=== PATIENT | male | born 1975 | race Caucasian/White ===

== ENCOUNTER 2017-08-14 10:37 | Inpatient (IN) | payer MEDICAID ==
[2017-08-14] MEDS: SODIUM CHLORIDE 0.9% 1L BAG IV* (11:04)
[2017-08-14] MEDS: CEFEPIME 2GM/50 ML (PMX) 50 ML IVPB ×2 (11:07→22:45)
[2017-08-14 11:09] LABS: WHITE BLOOD COUNT 12.2 10^3/ul (4.8-10.8)
[2017-08-14 11:09] LABS: ABNORMAL IP MESSAGE 1; ADD MAN DIFF? NO; BASOPHIL # 0.1 10^3/ul (0.0-0.1); BASOPHILS % 0.4 % (0.0-2.0); HEMATOCRIT 30.9 % (42.0-52.0); HEMOGLOBIN 10.8 g/dl (14.0-18.0); LYMPHOCYTES # 1.6 10^3/ul (0.8-2.9); LYMPHOCYTES % 12.8 % (15.0-51.0); MEAN CORPUSCULAR VOLUME 91.4 fl (82.0-101.0); MEAN PLATELET VOLUME 10.6 fl (7.4-10.4); MONOCYTE # 1.3 10^3/ul (0.3-0.9); MONOCYTES % 10.5 % (0.0-11.0); NEUTROPHILS % 73.9 % (39.0-77.0); PLATELET COUNT 72 10^3/UL (140-415); POSITIVE DIFF @See below; RED BLOOD COUNT 3.38 10^6/ul (4.70-6.10); RED CELL DISTRIBUTION WIDTH 14.7 % (11.5-14.5)
[2017-08-14 11:17] LABS: ADD UMIC NO; UR ASCORBIC ACID NEGATIVE (NEGATIVE); UR BILIRUBIN (Dip) NEGATIVE (NEGATIVE); UR BLOOD (Dip) NEGATIVE (NEGATIVE); UR CLARITY CLEAR (CLEAR); UR COLOR YELLOW (YELLOW); UR GLUCOSE (Dip) 3+ mg/dL (NEGATIVE); UR KETONES (Dip) TRACE mg/dL (NEGATIVE); UR LEUKOCYTE ESTERASE (Dip) NEGATIVE Leu/ul (NEGATIVE); UR NITRITE (Dip) NEGATIVE (NEGATIVE); UR SPECIFIC GRAVITY (Dip) 1.017 (1.003-1.030); UR TOTAL PROTEIN (Dip) NEGATIVE (NEGATIVE); UR UROBILINOGEN (Dip) 2+ mg/dL (NEGATIVE)
[2017-08-14 11:35] LABS: PROTIME 15.4 Sec (11.9-14.9); PT RATIO 1.2
[2017-08-14 11:36] LABS: PARTIAL THROMBOPLASTIN TIME 32.5 Sec (25.0-35.0)
[2017-08-14 11:37] LABS: ALANINE AMINOTRANSFERASE 41 IU/L (13-69); ALBUMIN 3.7 g/dl (3.3-4.9); ALBUMIN/GLOBULIN RATIO 0.88; ALKALINE PHOSPHATASE 190 IU/L (42-121); ANION GAP 26 (8-16); ASPARTATE AMINO TRANSFERASE 80 IU/L (15-46); BILIRUBIN,INDIRECT 0.3 mg/dl (0-1.1); BILIRUBIN,TOTAL 0.3 mg/dl (0.2-1.3); BLOOD UREA NITROGEN 10 mg/dl (7-20); CALCIUM 8.7 mg/dl (8.4-10.2); CARBON DIOXIDE 23 mmol/L (21-31); CHLORIDE 102 mmol/L (97-110); CREATINE KINASE 217 IU/L (23-200); CREATININE 0.74 mg/dl (0.61-1.24); GLUCOSE 314 mg/dl (70-220); LIPASE 50 U/L (23-300); POTASSIUM 3.7 mmol/L (3.5-5.1); SODIUM 147 mmol/L (135-144); TOTAL PROTEIN 7.9 g/dl (6.1-8.1)
[2017-08-14 11:42] LABS: AMPHETAMINE/METHAMPHETAMINE Negative (NEGATIVE); BARBITURATES Negative (NEGATIVE); BENZODIAZEPINES Negative (NEGATIVE); CANNABINOIDS Negative (NEGATIVE); COCAINE Negative (NEGATIVE); OPIATES Negative (NEGATIVE)
[2017-08-14 11:42] LABS: LACTIC ACID 4.1 mmol/L (0.5-2.0)
[2017-08-14 11:50] LABS: TROPONIN-I < 0.012 ng/ml (0.00-0.12)
[2017-08-14] MEDS: LIDOCAINE 1% (MPF) 5 ML VIAL SC (12:00)
[2017-08-14] MEDS: ACETAMINOPHEN 650 MG SUPP PR (12:36)
[2017-08-14] MEDS: VANCOMYCIN 1 GM (PMX) 250 ML IVPB (12:38)
[2017-08-14 13:37] LABS: LACTIC ACID 3.1 mmol/L (0.5-2.0)
[2017-08-14] MEDS: SOD CHLORIDE 0.9% 1,000 ML IV (13:47)
[2017-08-14] MEDS: MULTIVITAMINS 10 ML, THIAMINE 100 MG, FOLIC ACID 1 MG, MAGNESIUM SULFATE 2 GM in SOD CH... IV (13:48)
[2017-08-14 15:12] LABS: LACTIC ACID 1.9 mmol/L (0.5-2.0)
[2017-08-14] MEDS ORDERED: DOCUSATE SODIUM 100 MG CAP PO (15:30)
[2017-08-14] MEDS ORDERED: ACETAMINOPHEN 650 MG SUPP PR (15:30)
[2017-08-14] MEDS ORDERED: MAGNESIUM HYDROXIDE 30ML CUP PO (15:30)
[2017-08-14] MEDS ORDERED: ONDANSETRON 4 MG INJ IV (15:30)
[2017-08-14] MEDS ORDERED: VANCOMYCIN IV PER PHARMACY XX (15:30)
[2017-08-14] MEDS ORDERED: NACL 0.9% 3 ML SYG IV (15:30)
[2017-08-14] MEDS ORDERED: BISACODYL 10 MG SUPP PR (15:30)
[2017-08-14] MEDS ORDERED: HYDROCODONE/APAP (5/325) TAB PO (15:30)
[2017-08-14] MEDS: LORAZEPAM 2 MG INJ IV ×2 (16:05→17:22)
[2017-08-14] MEDS: CHLORDIAZEPOXIDE 25 MG CAP PO ×2 (16:05→22:46)
[2017-08-14] MEDS: SOD CHLORIDE 0.9% 2,540 ML IV (16:48)
[2017-08-14] MEDS ORDERED: ACETAMINOPHEN 325 MG TAB (17:00)
[2017-08-14] MEDS ORDERED: IBUPROFEN 200 MG TAB (17:19)
[2017-08-14] MEDS: IBUPROFEN 200 MG TAB PO (17:22)
[2017-08-14] MEDS: ACETAMINOPHEN 325 MG TAB PO (17:22)
[2017-08-14] MEDS ORDERED: DEXTROSE 50% 50 ML SYRINGE IV ×2 (17:30)
[2017-08-14] MEDS ORDERED: GLUCOSE GEL 15 GRAM TUBE PO ×2 (17:30)
[2017-08-14] MEDS ORDERED: GLUCAGON 1 MG INJ IM (17:30)
[2017-08-14] MEDS ORDERED: GLUCOSE GEL 15 GRAM TUBE BUCCAL (17:30)
[2017-08-14] MEDS: INSULIN ASPART [NOVOLOG] 3 ML PEN SC ×4 (18:00→20:10)
[2017-08-14] MEDS: LACTATED RINGER'S 1,000 ML IV (19:00)
[2017-08-14] MEDS: PANTOPRAZOLE 40 MG INJ IV (19:00)
[2017-08-14 19:19] LABS: LACTIC ACID 1.9 mmol/L (0.5-2.0)
[2017-08-14] MEDS: INSULIN GLARGINE [LANtus] 3 ML PEN SC (20:09)
[2017-08-14] MEDS: VANCOMYCIN 1.25 GM in SOD CHLORIDE 0.9% 250 ML IVPB (20:54)
[2017-08-15 01:00] LABS: LACTIC ACID 1.2 mmol/L (0.5-2.0)
[2017-08-15] MEDS: LACTATED RINGER'S 1,000 ML IV ×4 (01:42→22:28)
[2017-08-15] MEDS: INSULIN ASPART [NOVOLOG] 3 ML PEN SC ×8 (01:42→21:00)
[2017-08-15] MEDS: LORAZEPAM 2 MG INJ IV ×4 (04:13→16:34)
[2017-08-15] MEDS: ACCU-CHEK XX (05:30)
[2017-08-15 06:00] LABS: ADD MAN DIFF? NO
[2017-08-15 06:17] LABS: HEMOGLOBIN A1C 8.5 % (0-5.9)
[2017-08-15 06:32] LABS: ALANINE AMINOTRANSFERASE 41 IU/L (13-69); ALBUMIN 2.7 g/dl (3.3-4.9); ALBUMIN/GLOBULIN RATIO 0.81; ALKALINE PHOSPHATASE 143 IU/L (42-121); ANION GAP 12 (8-16); ASPARTATE AMINO TRANSFERASE 79 IU/L (15-46); BILIRUBIN,INDIRECT 0.2 mg/dl (0-1.1); BILIRUBIN,TOTAL 0.2 mg/dl (0.2-1.3); BLOOD UREA NITROGEN 9 mg/dl (7-20); CALCIUM 7.6 mg/dl (8.4-10.2); CARBON DIOXIDE 28 mmol/L (21-31); CHLORIDE 106 mmol/L (97-110); CHOL/HDL RATIO 3.3 RATIO; CHOLESTEROL 142 mg/dl (100-200); CREATININE 0.39 mg/dl (0.61-1.24); GLUCOSE 82 mg/dl (70-220); HDL CHOLESTEROL 42 mg/dl (28-71); LDL CHOLESTEROL,CALCULATED 70 mg/dl; MAGNESIUM 1.5 mg/dl (1.7-2.5); PHOSPHORUS 2.2 mg/dl (2.5-4.9); POTASSIUM 3.4 mmol/L (3.5-5.1); SODIUM 143 mmol/L (135-144); TRIGLYCERIDES 148 mg/dl (0-149)
[2017-08-15 06:40] LABS: LACTIC ACID 2.2 mmol/L (0.5-2.0)
[2017-08-15 06:48] LABS: FREE THYROXINE INDEX (Calc) 2.01 ug/ml (0.65-3.89); T4 (THYROXINE) 4.1 ug/dl (5.5-11.0)
[2017-08-15 07:20] LABS: WHITE BLOOD COUNT 10.8 10^3/ul (4.8-10.8)
[2017-08-15 07:20] LABS: ABNORMAL IP MESSAGE 1; BASOPHIL # 0.1 10^3/ul (0.0-0.1); BASOPHILS % 0.6 % (0.0-2.0); HEMATOCRIT 30.4 % (42.0-52.0); HEMOGLOBIN 10.6 g/dl (14.0-18.0); LYMPHOCYTES # 1.1 10^3/ul (0.8-2.9); LYMPHOCYTES % 9.7 % (15.0-51.0); MEAN CORPUSCULAR HEMOGLOBIN 31.8 pg (29.0-33.0); MEAN CORPUSCULAR HGB CONC 34.9 g/dl (32.0-37.0); MEAN CORPUSCULAR VOLUME 91.3 fl (82.0-101.0); MEAN PLATELET VOLUME 10.2 fl (7.4-10.4); MONOCYTE # 0.8 10^3/ul (0.3-0.9); MONOCYTES % 7.3 % (0.0-11.0); NEUTROPHIL # 8.6 10^3/ul (1.6-7.5); NEUTROPHILS % 80.3 % (39.0-77.0); PLATELET COUNT 61 10^3/UL (140-415); POSITIVE DIFF @See below; RED BLOOD COUNT 3.33 10^6/ul (4.70-6.10); RED CELL DISTRIBUTION WIDTH 14.4 % (11.5-14.5)
[2017-08-15] MEDS: PANTOPRAZOLE 40 MG INJ IV (08:22)
[2017-08-15] MEDS: CEFEPIME 2GM/50 ML (PMX) 50 ML IVPB ×3 (08:22→22:51)
[2017-08-15 08:50] LABS: ANISOCYTOSIS 2+ (0-0); BAND NEUTROPHILS #M 2.2 10^3/ul (0.0-0.6); BAND NEUTROPHILS % (M) 21 % (0-4); BASOPHIL #M 0.1 10^3/ul (0.0-0.0); BASOPHILS % (M) 1 % (0-2); ERYTHROBLAST% (NRBC) (M) 1 % (0-0); LYMPHOCYTES #M 1.7 10^3/ul (0.8-2.9); LYMPHOCYTES % (M) 16 % (15-51); MICROCYTOSIS 1+ (0-0); MONOCYTE #M 0.4 10^3/ul (0.3-0.9); MONOCYTES % (M) 4 % (0-11); MYELOCYTES #M 0.1 10^3/ul (0.0-0.0); MYELOCYTES % (M) 1 % (0-0); PLATELET ESTIMATE SIG DECREASED; POLYCHROMASIA 1+ (0-0); SEG NEUT #M 6.4 10^3/ul (1.6-7.5); SEGMENTED NEUTROPHILS (M) % 57 % (39-77); SMUDGE%M 12 % (0-0)
[2017-08-15] MEDS: CHLORDIAZEPOXIDE 25 MG CAP PO ×3 (09:34→21:23)
[2017-08-15] MEDS: VANCOMYCIN 1.25 GM in SOD CHLORIDE 0.9% 250 ML IVPB ×2 (09:48→21:22)
[2017-08-15] MEDS: MAGNESIUM SULFATE 2 GM/50 ML 50 ML IVPB (12:00)
[2017-08-15 13:02] LABS: LACTIC ACID 1.5 mmol/L (0.5-2.0)
[2017-08-15] MEDS: POTASSIUM PHOSPHATE 40 MEQ in SOD CHLORIDE 0.9% 250 ML IVPB (13:16)
[2017-08-15] MEDS: LEVOFLOXACIN 500MG/D5W (PMX) 100 ML IVPB (13:43)
[2017-08-15] MEDS: ACETAMINOPHEN 325 MG TAB PO (15:23)
[2017-08-15 18:13] LABS: LACTIC ACID 1.6 mmol/L (0.5-2.0)
[2017-08-15] MEDS: INSULIN GLARGINE [LANtus] 3 ML PEN SC (22:43)
[2017-08-16] MEDS: PERMETHRIN 5% 60 GM CR TOP (01:14)
[2017-08-16] MEDS: ACETAMINOPHEN 325 MG TAB PO ×3 (01:41→23:08)
[2017-08-16] MEDS: ACCU-CHEK XX (02:00)
[2017-08-16] MEDS ORDERED: PENDING SANTYL ORDER FOR WOUND CARE XX (03:30)
[2017-08-16] MEDS: PANTOPRAZOLE 40 MG INJ IV (05:52)
[2017-08-16] MEDS: CEFEPIME 2GM/50 ML (PMX) 50 ML IVPB ×2 (06:18→13:31)
[2017-08-16 07:21] LABS: ADD MAN DIFF? NO
[2017-08-16 07:22] LABS: WHITE BLOOD COUNT 9.1 10^3/ul (4.8-10.8)
[2017-08-16 07:22] LABS: ABNORMAL IP MESSAGE 1; BASOPHIL # 0.1 10^3/ul (0.0-0.1); BASOPHILS % 0.6 % (0.0-2.0); EOSINOPHILS % 0.3 % (0.0-7.0); HEMATOCRIT 29.5 % (42.0-52.0); HEMOGLOBIN 10.2 g/dl (14.0-18.0); LYMPHOCYTES # 1.6 10^3/ul (0.8-2.9); LYMPHOCYTES % 17.7 % (15.0-51.0); MEAN CORPUSCULAR HEMOGLOBIN 31.3 pg (29.0-33.0); MEAN CORPUSCULAR HGB CONC 34.6 g/dl (32.0-37.0); MEAN CORPUSCULAR VOLUME 90.5 fl (82.0-101.0); MEAN PLATELET VOLUME 10.8 fl (7.4-10.4); MONOCYTES % 11.3 % (0.0-11.0); NEUTROPHIL # 6.1 10^3/ul (1.6-7.5); NEUTROPHILS % 67.7 % (39.0-77.0); POSITIVE DIFF @See below; RED BLOOD COUNT 3.26 10^6/ul (4.70-6.10); RED CELL DISTRIBUTION WIDTH 14.3 % (11.5-14.5)
[2017-08-16] MEDS: LACTATED RINGER'S 1,000 ML IV ×3 (07:30→23:30)
[2017-08-16 07:31] LABS: PLATELET COUNT 75 10^3/UL (140-415)
[2017-08-16 07:42] LABS: CREATINE KINASE 123 IU/L (23-200)
[2017-08-16 07:44] LABS: ANION GAP 12 (8-16); BLOOD UREA NITROGEN 7 mg/dl (7-20); CALCIUM 8.2 mg/dl (8.4-10.2); CARBON DIOXIDE 29 mmol/L (21-31); CHLORIDE 105 mmol/L (97-110); CREATININE 0.47 mg/dl (0.61-1.24); GLUCOSE 74 mg/dl (70-220); SODIUM 143 mmol/L (135-144)
[2017-08-16] MEDS: INSULIN ASPART [NOVOLOG] 3 ML PEN SC ×7 (07:55→20:57)
[2017-08-16 08:20] LABS: VANCOMYCIN,TROUGH 5.9 ug/ml (10.0-20.0)
[2017-08-16] MEDS ORDERED: INFLUENZA VIRUS VACCINE 0.5 ML SYG IM* (09:00)
[2017-08-16] MEDS: CHLORDIAZEPOXIDE 25 MG CAP PO ×3 (09:13→20:43)
[2017-08-16 10:29] LABS: MAGNESIUM 1.6 mg/dl (1.7-2.5)
[2017-08-16] MEDS: VANCOMYCIN 1.25 GM in SOD CHLORIDE 0.9% 250 ML IVPB (10:32)
[2017-08-16] MEDS: POTASSIUM CHLORIDE (SR) 20 MEQ TAB PO (10:34)
[2017-08-16] MEDS: CEFTRIAXONE 2 GM/50 ML (PMX) 50 ML IVPB (16:01)
[2017-08-16] MEDS: VANCOMYCIN 1 GM 250 ML IVPB (16:02)
[2017-08-16] MEDS: LORAZEPAM 2 MG INJ IV ×2 (18:56→20:36)
[2017-08-16] MEDS: INSULIN GLARGINE [LANtus] 3 ML PEN SC (20:57)
[2017-08-17] MEDS: VANCOMYCIN 1 GM 250 ML IVPB ×3 (01:04→16:04)
[2017-08-17] MEDS: ACCU-CHEK XX (02:00)
[2017-08-17] MEDS: PANTOPRAZOLE 40 MG INJ IV (06:00)
[2017-08-17] MEDS: LACTATED RINGER'S 1,000 ML IV ×3 (07:29→23:30)
[2017-08-17] MEDS: INSULIN ASPART [NOVOLOG] 3 ML PEN SC ×7 (07:54→20:26)
[2017-08-17 08:25] LABS: ADD MAN DIFF? NO
[2017-08-17 08:28] LABS: ABNORMAL IP MESSAGE 1; BASOPHIL # 0.1 10^3/ul (0.0-0.1); BASOPHILS % 0.7 % (0.0-2.0); EOSINOPHILS # 0.1 10^3/ul (0.0-0.5); HEMATOCRIT 28.7 % (42.0-52.0); HEMOGLOBIN 9.9 g/dl (14.0-18.0); LYMPHOCYTES # 1.6 10^3/ul (0.8-2.9); LYMPHOCYTES % 22.6 % (15.0-51.0); MEAN CORPUSCULAR HEMOGLOBIN 30.9 pg (29.0-33.0); MEAN CORPUSCULAR HGB CONC 34.5 g/dl (32.0-37.0); MEAN CORPUSCULAR VOLUME 89.7 fl (82.0-101.0); MONOCYTE # 0.8 10^3/ul (0.3-0.9); MONOCYTES % 11.6 % (0.0-11.0); NEUTROPHIL # 4.2 10^3/ul (1.6-7.5); NEUTROPHILS % 59.7 % (39.0-77.0); POSITIVE DIFF @See below; RED CELL DISTRIBUTION WIDTH 14.4 % (11.5-14.5)
[2017-08-17 08:29] LABS: PLATELET COUNT 91 10^3/UL (140-415)
[2017-08-17] MEDS: CHLORDIAZEPOXIDE 25 MG CAP PO ×3 (08:43→22:49)
[2017-08-17 09:02] LABS: ANION GAP 14 (8-16); BLOOD UREA NITROGEN 7 mg/dl (7-20); CALCIUM 8.4 mg/dl (8.4-10.2); CARBON DIOXIDE 26 mmol/L (21-31); CHLORIDE 106 mmol/L (97-110); CREATININE 0.46 mg/dl (0.61-1.24); GLUCOSE 160 mg/dl (70-220); SODIUM 143 mmol/L (135-144)
[2017-08-17 09:09] LABS: POTASSIUM 2.9 mmol/L (3.5-5.1)
[2017-08-17] MEDS: POTASSIUM CHLORIDE (SR) 20 MEQ TAB PO (09:59)
[2017-08-17] MEDS: CEFTRIAXONE 2 GM/50 ML (PMX) 50 ML IVPB (16:38)
[2017-08-17] MEDS: MUPIROCIN 2% 22 GM OINT TOP ×2 (16:39→22:49)
[2017-08-17] MEDS: MULTIVITAMINS 10 ML, THIAMINE 100 MG, FOLIC ACID 1 MG in SOD CHLORIDE 0.9% 1,000 ML IVPB (17:47)
[2017-08-17] MEDS: ACETAMINOPHEN 325 MG TAB PO (20:17)
[2017-08-17] MEDS: INSULIN GLARGINE [LANtus] 3 ML PEN SC (20:25)
[2017-08-17] MEDS: PERMETHRIN 5% 60 GM CR TOP (22:49)
[2017-08-17] MEDS: DIPHENHYDRAMINE 50 MG INJ IV (22:49)
[2017-08-17 23:46] LABS: VANCOMYCIN,TROUGH 8.6 ug/ml (10.0-20.0)
[2017-08-18] MEDS: VANCOMYCIN 1 GM 250 ML IVPB (00:46)
[2017-08-18] MEDS: ACCU-CHEK XX (02:00)
[2017-08-18] MEDS: PANTOPRAZOLE 40 MG INJ IV (06:10)
[2017-08-18] MEDS: VANCOMYCIN 1.25 GM in SOD CHLORIDE 0.9% 250 ML IVPB (06:10)
[2017-08-18] MEDS: LACTATED RINGER'S 1,000 ML IV ×3 (07:30→23:30)
[2017-08-18 07:38] LABS: ADD MAN DIFF? NO
[2017-08-18 07:54] LABS: WHITE BLOOD COUNT 6.7 10^3/ul (4.8-10.8)
[2017-08-18 07:54] LABS: ABNORMAL IP MESSAGE 1; BASOPHIL # 0.1 10^3/ul (0.0-0.1); BASOPHILS % 0.7 % (0.0-2.0); EOSINOPHILS # 0.1 10^3/ul (0.0-0.5); EOSINOPHILS % 1.9 % (0.0-7.0); HEMATOCRIT 29.6 % (42.0-52.0); HEMOGLOBIN 10.3 g/dl (14.0-18.0); LYMPHOCYTES # 1.4 10^3/ul (0.8-2.9); LYMPHOCYTES % 21.3 % (15.0-51.0); MEAN CORPUSCULAR HEMOGLOBIN 31.7 pg (29.0-33.0); MEAN CORPUSCULAR HGB CONC 34.8 g/dl (32.0-37.0); MEAN CORPUSCULAR VOLUME 91.1 fl (82.0-101.0); MEAN PLATELET VOLUME 10.5 fl (7.4-10.4); MONOCYTE # 0.8 10^3/ul (0.3-0.9); MONOCYTES % 12.4 % (0.0-11.0); NEUTROPHIL # 3.9 10^3/ul (1.6-7.5); NEUTROPHILS % 57.7 % (39.0-77.0); NUCLEATED RED BLOOD CELLS% 0.3 /100WBC (0.0-0.0); PLATELET COUNT 113 10^3/UL (140-415); POSITIVE DIFF @See below; RED BLOOD COUNT 3.25 10^6/ul (4.70-6.10); RED CELL DISTRIBUTION WIDTH 14.3 % (11.5-14.5)
[2017-08-18] MEDS: INSULIN ASPART [NOVOLOG] 3 ML PEN SC ×7 (07:55→21:50)
[2017-08-18 08:14] LABS: ANION GAP 13 (8-16); BLOOD UREA NITROGEN 6 mg/dl (7-20); CALCIUM 8.4 mg/dl (8.4-10.2); CARBON DIOXIDE 26 mmol/L (21-31); CHLORIDE 106 mmol/L (97-110); CREATININE 0.45 mg/dl (0.61-1.24); GLUCOSE 214 mg/dl (70-220); POTASSIUM 3.1 mmol/L (3.5-5.1); SODIUM 142 mmol/L (135-144)
[2017-08-18] MEDS: CHLORDIAZEPOXIDE 25 MG CAP PO ×3 (08:46→21:37)
[2017-08-18] MEDS: MUPIROCIN 2% 22 GM OINT TOP ×2 (08:46→21:37)
[2017-08-18] MEDS: MULTIVITAMINS 10 ML, THIAMINE 100 MG, FOLIC ACID 1 MG in SOD CHLORIDE 0.9% 1,000 ML IVPB ×2 (09:00→13:43)
[2017-08-18 12:28] LABS: MAGNESIUM 1.6 mg/dl (1.7-2.5)
[2017-08-18] MEDS: POTASSIUM CHLORIDE 100 ML IVPB ×2 (12:37→15:22)
[2017-08-18 12:59] LABS: AMMONIA 45 umol/l (9-30)
[2017-08-18] MEDS: VANCOMYCIN 1.5 GM in SOD CHLORIDE 0.9% 250 ML IVPB (13:42)
[2017-08-18] MEDS: CEFTRIAXONE 2 GM/50 ML (PMX) 50 ML IVPB (16:30)
[2017-08-18] MEDS: DOXYCYCLINE 100 MG TAB PO (21:37)
[2017-08-18] MEDS: INSULIN GLARGINE [LANtus] 3 ML PEN SC (21:49)
[2017-08-19] MEDS: LACTATED RINGER'S 1,000 ML IV ×4 (01:24→23:30)
[2017-08-19] MEDS: MAGNESIUM SULFATE 2 GM/50 ML 50 ML IVPB (02:13)
[2017-08-19] MEDS: ACCU-CHEK XX (02:15)
[2017-08-19] MEDS: ACETAMINOPHEN 325 MG TAB PO (03:16)
[2017-08-19 05:48] LABS: ADD MAN DIFF? NO
[2017-08-19 05:51] LABS: WHITE BLOOD COUNT 10.3 10^3/ul (4.8-10.8)
[2017-08-19 05:51] LABS: BASOPHIL # 0.1 10^3/ul (0.0-0.1); BASOPHILS % 0.6 % (0.0-2.0); EOSINOPHILS # 0.2 10^3/ul (0.0-0.5); EOSINOPHILS % 1.5 % (0.0-7.0); HEMATOCRIT 28.6 % (42.0-52.0); HEMOGLOBIN 9.8 g/dl (14.0-18.0); LYMPHOCYTES # 1.6 10^3/ul (0.8-2.9); LYMPHOCYTES % 15.7 % (15.0-51.0); MEAN CORPUSCULAR HEMOGLOBIN 31.2 pg (29.0-33.0); MEAN CORPUSCULAR HGB CONC 34.3 g/dl (32.0-37.0); MEAN CORPUSCULAR VOLUME 91.1 fl (82.0-101.0); MEAN PLATELET VOLUME 10.6 fl (7.4-10.4); MONOCYTES % 9.5 % (0.0-11.0); NEUTROPHILS % 67.9 % (39.0-77.0); NUCLEATED RED BLOOD CELLS% 0.2 /100WBC (0.0-0.0); PLATELET COUNT 154 10^3/UL (140-415); RED BLOOD COUNT 3.14 10^6/ul (4.70-6.10)
[2017-08-19 06:32] LABS: ANION GAP 13 (8-16); BLOOD UREA NITROGEN 5 mg/dl (7-20); CALCIUM 8.4 mg/dl (8.4-10.2); CARBON DIOXIDE 25 mmol/L (21-31); CHLORIDE 107 mmol/L (97-110); CREATININE 0.55 mg/dl (0.61-1.24); GLUCOSE 160 mg/dl (70-220); POTASSIUM 3.3 mmol/L (3.5-5.1); SODIUM 142 mmol/L (135-144)
[2017-08-19] MEDS: PANTOPRAZOLE 40 MG INJ IV (06:57)
[2017-08-19] MEDS: MUPIROCIN 2% 22 GM OINT TOP ×2 (09:00→21:37)
[2017-08-19] MEDS: CHLORDIAZEPOXIDE 25 MG CAP PO (09:37)
[2017-08-19] MEDS: DOXYCYCLINE 100 MG TAB PO ×2 (09:37→20:37)
[2017-08-19] MEDS: INSULIN ASPART [NOVOLOG] 3 ML PEN SC ×7 (09:42→20:35)
[2017-08-19] MEDS: IVERMECTIN 3 MG TAB PO (14:24)
[2017-08-19] MEDS: PIPER-TAZO 3.375 GM IV (PMX) 100 ML IVPB ×2 (14:24→19:01)
[2017-08-19] MEDS: LACTULOSE 30ML CUP PO ×2 (14:24→22:25)
[2017-08-19] MEDS: LORAZEPAM 2 MG INJ IV (21:37)
[2017-08-19] MEDS: INSULIN GLARGINE [LANtus] 3 ML PEN SC (21:42)
[2017-08-20] MEDS: PIPER-TAZO 3.375 GM IV (PMX) 100 ML IVPB ×5 (00:18→20:38)
[2017-08-20] MEDS: ACCU-CHEK XX (02:00)
[2017-08-20] MEDS: LACTULOSE 30ML CUP PO ×3 (05:59→22:09)
[2017-08-20] MEDS: PANTOPRAZOLE 40 MG INJ IV (05:59)
[2017-08-20 06:05] LABS: ABNORMAL IP MESSAGE 1; HEMATOCRIT 27.8 % (42.0-52.0); HEMOGLOBIN 9.3 g/dl (14.0-18.0); MEAN CORPUSCULAR HGB CONC 33.5 g/dl (32.0-37.0); MEAN CORPUSCULAR VOLUME 92.7 fl (82.0-101.0); MEAN PLATELET VOLUME 10.2 fl (7.4-10.4); PLATELET COUNT 200 10^3/UL (140-415); POSITIVE DIFF @See below; RED CELL DISTRIBUTION WIDTH 15.3 % (11.5-14.5)
[2017-08-20 06:05] LABS: WHITE BLOOD COUNT 7.3 10^3/ul (4.8-10.8)
[2017-08-20 06:19] LABS: ADD MAN DIFF? YES
[2017-08-20 06:22] LABS: ANION GAP 10 (8-16); BLOOD UREA NITROGEN 6 mg/dl (7-20); CALCIUM 8.6 mg/dl (8.4-10.2); CARBON DIOXIDE 29 mmol/L (21-31); CHLORIDE 107 mmol/L (97-110); CREATININE 0.49 mg/dl (0.61-1.24); GLUCOSE 150 mg/dl (70-220); POTASSIUM 3.4 mmol/L (3.5-5.1); SODIUM 143 mmol/L (135-144)
[2017-08-20] MEDS: LACTATED RINGER'S 1,000 ML IV (07:30)
[2017-08-20] MEDS: INSULIN ASPART [NOVOLOG] 3 ML PEN SC ×7 (08:18→20:48)
[2017-08-20] MEDS: DOXYCYCLINE 100 MG TAB PO ×2 (08:19→20:45)
[2017-08-20] MEDS: MUPIROCIN 2% 22 GM OINT TOP ×2 (08:19→20:48)
[2017-08-20] MEDS ORDERED: RIFAXIMIN 550 MG TAB PO (09:30)
[2017-08-20 09:47] LABS: ANISOCYTOSIS 1+ (0-0); BAND NEUTROPHILS #M 0.4 10^3/ul (0.0-0.6); BAND NEUTROPHILS % (M) 6 % (0-4); EOSINOPHILS % (M) 2 % (0-7); GIANT THROMBO% (M) 1 % (0-0); LYMPHOCYTES #M 1.6 10^3/ul (0.8-2.9); LYMPHOCYTES % (M) 22 % (15-51); METAMYELOCYTES %M 1 % (0-0); MONOCYTE #M 0.5 10^3/ul (0.3-0.9); MONOCYTES % (M) 8 % (0-11); MYELOCYTES % (M) 1 % (0-0); PLATELET ESTIMATE NORMAL; POLYCHROMASIA 1+ (0-0); SEG NEUT #M 4.3 10^3/ul (1.6-7.5); SEGMENTED NEUTROPHILS (M) % 59 % (39-77); SMUDGE%M 3 % (0-0)
[2017-08-20] MEDS ORDERED: RIFAMPIN 300 MG CAP PO (10:00)
[2017-08-20] MEDS: MULTIVITAMINS 10 ML, THIAMINE 100 MG, FOLIC ACID 1 MG in SOD CHLORIDE 0.9% 1,000 ML IVPB (10:01)
[2017-08-20] MEDS: POTASSIUM CHLORIDE (SR) 20 MEQ TAB PO (10:01)
[2017-08-20 10:27] LABS: MAGNESIUM 1.8 mg/dl (1.7-2.5)
[2017-08-20] MEDS: CHLORDIAZEPOXIDE 25 MG CAP PO ×2 (13:00→20:45)
[2017-08-20] MEDS: RIFAMPIN 300 MG CAP PO (20:45)
[2017-08-20] MEDS: INSULIN GLARGINE [LANtus] 3 ML PEN SC (20:47)
[2017-08-21] MEDS: PIPER-TAZO 3.375 GM IV (PMX) 100 ML IVPB ×4 (00:45→17:46)
[2017-08-21] MEDS: ACCU-CHEK XX (02:00)
[2017-08-21] MEDS: PANTOPRAZOLE 40 MG INJ IV (05:41)
[2017-08-21] MEDS: LACTULOSE 30ML CUP PO ×3 (05:42→21:47)
[2017-08-21 06:55] LABS: ANION GAP 15 (8-16); BLOOD UREA NITROGEN 7 mg/dl (7-20); CARBON DIOXIDE 28 mmol/L (21-31); CHLORIDE 105 mmol/L (97-110); CREATININE 0.57 mg/dl (0.61-1.24); GLUCOSE 188 mg/dl (70-220); MAGNESIUM 1.7 mg/dl (1.7-2.5); POTASSIUM 3.7 mmol/L (3.5-5.1); SODIUM 144 mmol/L (135-144)
[2017-08-21] MEDS: INSULIN ASPART [NOVOLOG] 3 ML PEN SC ×7 (08:20→21:44)
[2017-08-21] MEDS: MULTIVITAMINS 10 ML, THIAMINE 100 MG, FOLIC ACID 1 MG in SOD CHLORIDE 0.9% 1,000 ML IVPB (08:26)
[2017-08-21] MEDS: DOXYCYCLINE 100 MG TAB PO ×2 (08:26→21:42)
[2017-08-21] MEDS: CHLORDIAZEPOXIDE 25 MG CAP PO (08:26)
[2017-08-21] MEDS: MUPIROCIN 2% 22 GM OINT TOP ×2 (08:53→21:47)
[2017-08-21 10:23] LABS: HAAIG REFLEX REFLEX FILED
[2017-08-21] MEDS: INSULIN GLARGINE [LANtus] 3 ML PEN SC (13:03)
[2017-08-21] MEDS: morphine 2 MG INJ IV (13:21)
[2017-08-21 15:31] LABS: HEPATITIS B SURFACE ANTIGEN NEGATIVE (NEGATIVE)
[2017-08-21 15:49] LABS: HEPATITIS B CORE ANTIBODY NEGATIVE (NEGATIVE); HEPATITIS C VIRAL ANTIBODY NEGATIVE (NEGATIVE)
[2017-08-21] MEDS: RIFAMPIN 300 MG CAP PO (21:42)
[2017-08-22] MEDS: PIPER-TAZO 3.375 GM IV (PMX) 100 ML IVPB ×5 (00:15→23:33)
[2017-08-22] MEDS: ACCU-CHEK XX (02:00)
[2017-08-22 05:28] LABS: ADD MAN DIFF? NO
[2017-08-22 05:41] LABS: BASOPHIL # 0.1 10^3/ul (0.0-0.1); BASOPHILS % 1.2 % (0.0-2.0); EOSINOPHILS # 0.1 10^3/ul (0.0-0.5); EOSINOPHILS % 1.7 % (0.0-7.0); HEMATOCRIT 28.1 % (42.0-52.0); HEMOGLOBIN 9.5 g/dl (14.0-18.0); LYMPHOCYTES # 1.7 10^3/ul (0.8-2.9); MEAN CORPUSCULAR HEMOGLOBIN 31.6 pg (29.0-33.0); MEAN CORPUSCULAR HGB CONC 33.8 g/dl (32.0-37.0); MEAN CORPUSCULAR VOLUME 93.4 fl (82.0-101.0); MONOCYTE # 0.8 10^3/ul (0.3-0.9); MONOCYTES % 12.5 % (0.0-11.0); NEUTROPHIL # 3.2 10^3/ul (1.6-7.5); NEUTROPHILS % 53.4 % (39.0-77.0); PLATELET COUNT 290 10^3/UL (140-415); RED BLOOD COUNT 3.01 10^6/ul (4.70-6.10); RED CELL DISTRIBUTION WIDTH 15.1 % (11.5-14.5)
[2017-08-22] MEDS: PANTOPRAZOLE 40 MG INJ IV (05:50)
[2017-08-22] MEDS: LACTULOSE 30ML CUP PO ×3 (05:50→21:06)
[2017-08-22 06:43] LABS: ALANINE AMINOTRANSFERASE 79 IU/L (13-69); ALBUMIN 3.1 g/dl (3.3-4.9); ALBUMIN/GLOBULIN RATIO 0.58; ALKALINE PHOSPHATASE 253 IU/L (42-121); ANION GAP 14 (8-16); ASPARTATE AMINO TRANSFERASE 142 IU/L (15-46); BILIRUBIN,INDIRECT 0.4 mg/dl (0-1.1); BILIRUBIN,TOTAL 0.4 mg/dl (0.2-1.3); BLOOD UREA NITROGEN 5 mg/dl (7-20); CALCIUM 8.7 mg/dl (8.4-10.2); CARBON DIOXIDE 26 mmol/L (21-31); CHLORIDE 104 mmol/L (97-110); CREATININE 0.55 mg/dl (0.61-1.24); GLUCOSE 273 mg/dl (70-220); POTASSIUM 3.8 mmol/L (3.5-5.1); SODIUM 140 mmol/L (135-144); TOTAL PROTEIN 8.4 g/dl (6.1-8.1)
[2017-08-22] MEDS: INSULIN ASPART [NOVOLOG] 3 ML PEN SC ×8 (08:15→21:08)
[2017-08-22] MEDS ORDERED: INSULIN GLARGINE [LANtus] 3 ML PEN SC (09:00)
[2017-08-22] MEDS: DOXYCYCLINE 100 MG TAB PO ×2 (09:03→21:06)
[2017-08-22] MEDS: INSULIN GLARGINE [LANtus] 3 ML PEN SC (09:03)
[2017-08-22] MEDS: CHLORDIAZEPOXIDE 25 MG CAP PO (09:04)
[2017-08-22] MEDS: MUPIROCIN 2% 22 GM OINT TOP ×2 (09:04→21:06)
[2017-08-22] MEDS: MULTIVITAMINS 10 ML, THIAMINE 100 MG, FOLIC ACID 1 MG in SOD CHLORIDE 0.9% 1,000 ML IVPB (09:04)
[2017-08-22] MEDS: CHLORDIAZEPOXIDE 5 MG CAP PO ×2 (12:13→21:06)
[2017-08-22 12:25] LABS: AMMONIA 14 umol/l (9-30)
[2017-08-22] MEDS ORDERED: morphine LIQ (10 MG/5 ML) CUP PO (15:00)
[2017-08-22] MEDS: RIFAMPIN 300 MG CAP PO (21:06)
[2017-08-23] MEDS: ACCU-CHEK XX (01:20)
[2017-08-23] MEDS: PIPER-TAZO 3.375 GM IV (PMX) 100 ML IVPB (05:06)
[2017-08-23] MEDS: PANTOPRAZOLE (EC) 40 MG TAB PO (05:06)
[2017-08-23] MEDS: LACTULOSE 30ML CUP PO ×3 (05:06→22:45)
[2017-08-23 06:17] LABS: ADD MAN DIFF? NO
[2017-08-23 06:22] LABS: BASOPHIL # 0.1 10^3/ul (0.0-0.1); BASOPHILS % 1.4 % (0.0-2.0); EOSINOPHILS # 0.1 10^3/ul (0.0-0.5); HEMOGLOBIN 9.8 g/dl (14.0-18.0); LYMPHOCYTES # 1.7 10^3/ul (0.8-2.9); LYMPHOCYTES % 28.3 % (15.0-51.0); MEAN CORPUSCULAR HEMOGLOBIN 31.5 pg (29.0-33.0); MEAN CORPUSCULAR HGB CONC 33.8 g/dl (32.0-37.0); MEAN CORPUSCULAR VOLUME 93.2 fl (82.0-101.0); MEAN PLATELET VOLUME 9.6 fl (7.4-10.4); MONOCYTE # 0.8 10^3/ul (0.3-0.9); MONOCYTES % 13.8 % (0.0-11.0); NEUTROPHIL # 3.2 10^3/ul (1.6-7.5); NEUTROPHILS % 53.8 % (39.0-77.0); PLATELET COUNT 333 10^3/UL (140-415); RED BLOOD COUNT 3.11 10^6/ul (4.70-6.10); RED CELL DISTRIBUTION WIDTH 15.2 % (11.5-14.5)
[2017-08-23 06:22] LABS: WHITE BLOOD COUNT 5.9 10^3/ul (4.8-10.8)
[2017-08-23 06:54] LABS: ALANINE AMINOTRANSFERASE 79 IU/L (13-69); ALBUMIN 3.2 g/dl (3.3-4.9); ALBUMIN/GLOBULIN RATIO 0.58; ALKALINE PHOSPHATASE 224 IU/L (42-121); ANION GAP 14 (8-16); ASPARTATE AMINO TRANSFERASE 115 IU/L (15-46); BILIRUBIN,INDIRECT 0.3 mg/dl (0-1.1); BILIRUBIN,TOTAL 0.3 mg/dl (0.2-1.3); BLOOD UREA NITROGEN 6 mg/dl (7-20); CALCIUM 8.8 mg/dl (8.4-10.2); CARBON DIOXIDE 26 mmol/L (21-31); CHLORIDE 106 mmol/L (97-110); CREATININE 0.58 mg/dl (0.61-1.24); GLUCOSE 254 mg/dl (70-220); MAGNESIUM 1.7 mg/dl (1.7-2.5); POTASSIUM 3.7 mmol/L (3.5-5.1); SODIUM 142 mmol/L (135-144); TOTAL PROTEIN 8.7 g/dl (6.1-8.1)
[2017-08-23] MEDS: CHLORDIAZEPOXIDE 5 MG CAP PO ×3 (08:10→20:14)
[2017-08-23] MEDS: FOLIC ACID 0.4 MG TAB PO (08:11)
[2017-08-23] MEDS: DOXYCYCLINE 100 MG TAB PO ×2 (08:11→20:14)
[2017-08-23] MEDS: MUPIROCIN 2% 22 GM OINT TOP ×2 (08:11→20:16)
[2017-08-23] MEDS: THIAMINE 100 MG TAB PO (08:11)
[2017-08-23] MEDS: INSULIN ASPART [NOVOLOG] 3 ML PEN SC ×7 (08:13→20:18)
[2017-08-23] MEDS: INSULIN GLARGINE [LANtus] 3 ML PEN SC (08:15)
[2017-08-23] MEDS: CEFTRIAXONE 1 GM/50 ML (PMX) 50 ML IVPB (10:45)
[2017-08-23 14:47] LABS: HSV 1 IGG ANTIBODY >58.00 index; HSV 2 IGG ANTIBODY <0.90 index
[2017-08-23] MEDS: RIFAMPIN 300 MG CAP PO (20:14)
[2017-08-23 21:51] LABS: VITAMIN B1 (THIAMINE) 212 nmol/L (78-185)
[2017-08-24] MEDS: ACCU-CHEK XX (02:49)
[2017-08-24] MEDS: LACTULOSE 30ML CUP PO ×3 (05:21→21:59)
[2017-08-24] MEDS: PANTOPRAZOLE (EC) 40 MG TAB PO (05:21)
[2017-08-24 06:21] LABS: ADD MAN DIFF? NO
[2017-08-24 06:26] LABS: WHITE BLOOD COUNT 5.9 10^3/ul (4.8-10.8)
[2017-08-24 06:26] LABS: BASOPHIL # 0.1 10^3/ul (0.0-0.1); BASOPHILS % 1.5 % (0.0-2.0); EOSINOPHILS # 0.1 10^3/ul (0.0-0.5); EOSINOPHILS % 0.9 % (0.0-7.0); HEMATOCRIT 30.6 % (42.0-52.0); HEMOGLOBIN 10.1 g/dl (14.0-18.0); LYMPHOCYTES # 1.8 10^3/ul (0.8-2.9); LYMPHOCYTES % 30.3 % (15.0-51.0); MEAN CORPUSCULAR VOLUME 93.9 fl (82.0-101.0); MEAN PLATELET VOLUME 9.6 fl (7.4-10.4); MONOCYTE # 0.8 10^3/ul (0.3-0.9); MONOCYTES % 13.2 % (0.0-11.0); NEUTROPHIL # 3.1 10^3/ul (1.6-7.5); NEUTROPHILS % 52.7 % (39.0-77.0); PLATELET COUNT 359 10^3/UL (140-415); RED BLOOD COUNT 3.26 10^6/ul (4.70-6.10); RED CELL DISTRIBUTION WIDTH 14.9 % (11.5-14.5)
[2017-08-24 06:48] LABS: MAGNESIUM 1.7 mg/dl (1.7-2.5)
[2017-08-24 06:48] LABS: PHOSPHORUS 4.4 mg/dl (2.5-4.9)
[2017-08-24 07:15] LABS: AMMONIA 37 umol/l (9-30)
[2017-08-24 07:16] LABS: ALANINE AMINOTRANSFERASE 75 IU/L (13-69); ALBUMIN 3.2 g/dl (3.3-4.9); ALBUMIN/GLOBULIN RATIO 0.57; ALKALINE PHOSPHATASE 210 IU/L (42-121); ANION GAP 12 (8-16); ASPARTATE AMINO TRANSFERASE 99 IU/L (15-46); BILIRUBIN,INDIRECT 0.3 mg/dl (0-1.1); BILIRUBIN,TOTAL 0.3 mg/dl (0.2-1.3); BLOOD UREA NITROGEN 7 mg/dl (7-20); CALCIUM 8.9 mg/dl (8.4-10.2); CARBON DIOXIDE 29 mmol/L (21-31); CHLORIDE 106 mmol/L (97-110); GLUCOSE 208 mg/dl (70-220); SODIUM 143 mmol/L (135-144); TOTAL PROTEIN 8.8 g/dl (6.1-8.1)
[2017-08-24] MEDS: INSULIN ASPART [NOVOLOG] 3 ML PEN SC ×7 (07:46→20:38)
[2017-08-24] MEDS: FOLIC ACID 0.4 MG TAB PO (09:17)
[2017-08-24] MEDS: DOXYCYCLINE 100 MG TAB PO ×2 (09:17→20:38)
[2017-08-24] MEDS: THIAMINE 100 MG TAB PO (09:17)
[2017-08-24] MEDS: CHLORDIAZEPOXIDE 5 MG CAP PO ×3 (09:17→20:38)
[2017-08-24] MEDS: MUPIROCIN 2% 22 GM OINT TOP ×2 (09:18→20:42)
[2017-08-24] MEDS: INSULIN GLARGINE [LANtus] 3 ML PEN SC (09:19)
[2017-08-24] MEDS: CEFTRIAXONE 1 GM/50 ML (PMX) 50 ML IVPB (09:28)
[2017-08-24] MEDS: RIFAMPIN 300 MG CAP PO (20:38)
[2017-08-25] MEDS: ACCU-CHEK XX (01:30)
[2017-08-25] MEDS: LACTULOSE 30ML CUP PO ×3 (05:29→21:58)
[2017-08-25] MEDS: PANTOPRAZOLE (EC) 40 MG TAB PO (05:29)
[2017-08-25 06:11] LABS: ADD MAN DIFF? NO
[2017-08-25 06:22] LABS: WHITE BLOOD COUNT 5.6 10^3/ul (4.8-10.8)
[2017-08-25 06:22] LABS: BASOPHIL # 0.1 10^3/ul (0.0-0.1); BASOPHILS % 2.1 % (0.0-2.0); EOSINOPHILS % 0.7 % (0.0-7.0); HEMATOCRIT 29.9 % (42.0-52.0); LYMPHOCYTES # 1.8 10^3/ul (0.8-2.9); LYMPHOCYTES % 31.7 % (15.0-51.0); MEAN CORPUSCULAR HEMOGLOBIN 31.3 pg (29.0-33.0); MEAN CORPUSCULAR HGB CONC 33.4 g/dl (32.0-37.0); MEAN CORPUSCULAR VOLUME 93.4 fl (82.0-101.0); MEAN PLATELET VOLUME 9.7 fl (7.4-10.4); MONOCYTE # 0.7 10^3/ul (0.3-0.9); MONOCYTES % 12.7 % (0.0-11.0); NEUTROPHIL # 2.9 10^3/ul (1.6-7.5); NEUTROPHILS % 51.9 % (39.0-77.0); PLATELET COUNT 358 10^3/UL (140-415); RED CELL DISTRIBUTION WIDTH 14.7 % (11.5-14.5)
[2017-08-25 07:04] LABS: AMMONIA 35 umol/l (9-30)
[2017-08-25 07:05] LABS: ALANINE AMINOTRANSFERASE 61 IU/L (13-69); ALBUMIN 3.1 g/dl (3.3-4.9); ALBUMIN/GLOBULIN RATIO 0.57; ALKALINE PHOSPHATASE 245 IU/L (42-121); ANION GAP 16 (8-16); ASPARTATE AMINO TRANSFERASE 68 IU/L (15-46); BILIRUBIN,INDIRECT 0.2 mg/dl (0-1.1); BILIRUBIN,TOTAL 0.2 mg/dl (0.2-1.3); BLOOD UREA NITROGEN 9 mg/dl (7-20); CALCIUM 8.9 mg/dl (8.4-10.2); CARBON DIOXIDE 25 mmol/L (21-31); CHLORIDE 106 mmol/L (97-110); CREATININE 0.59 mg/dl (0.61-1.24); GLUCOSE 318 mg/dl (70-220); POTASSIUM 4.4 mmol/L (3.5-5.1); SODIUM 143 mmol/L (135-144); TOTAL PROTEIN 8.5 g/dl (6.1-8.1)
[2017-08-25 07:36] LABS: MAGNESIUM 1.6 mg/dl (1.7-2.5)
[2017-08-25 07:36] LABS: PHOSPHORUS 4.8 mg/dl (2.5-4.9)
[2017-08-25] MEDS: INSULIN ASPART [NOVOLOG] 3 ML PEN SC ×7 (08:22→20:37)
[2017-08-25] MEDS: INSULIN GLARGINE [LANtus] 3 ML PEN SC (08:41)
[2017-08-25] MEDS: FOLIC ACID 0.4 MG TAB PO (08:57)
[2017-08-25] MEDS: CHLORDIAZEPOXIDE 5 MG CAP PO ×2 (08:58→12:30)
[2017-08-25] MEDS: DOXYCYCLINE 100 MG TAB PO ×2 (08:59→20:35)
[2017-08-25] MEDS: MUPIROCIN 2% 22 GM OINT TOP ×2 (08:59→20:36)
[2017-08-25] MEDS: THIAMINE 100 MG TAB PO (08:59)
[2017-08-25] MEDS: ARTIFICIAL TEARS 15 ML OPH BOTH EYES ×2 (09:08→14:48)
[2017-08-25] MEDS: CEFTRIAXONE 1 GM/50 ML (PMX) 50 ML IVPB (10:15)
[2017-08-26] MEDS: ACCU-CHEK XX (01:58)
[2017-08-26] MEDS: PANTOPRAZOLE (EC) 40 MG TAB PO (05:32)
[2017-08-26] MEDS: LACTULOSE 30ML CUP PO ×3 (05:32→17:00)
[2017-08-26 06:22] LABS: ADD MAN DIFF? NO
[2017-08-26 06:45] LABS: WHITE BLOOD COUNT 7.3 10^3/ul (4.8-10.8)
[2017-08-26 06:45] LABS: BASOPHIL # 0.2 10^3/ul (0.0-0.1); EOSINOPHILS # 0.1 10^3/ul (0.0-0.5); EOSINOPHILS % 0.7 % (0.0-7.0); HEMATOCRIT 31.6 % (42.0-52.0); HEMOGLOBIN 10.3 g/dl (14.0-18.0); LYMPHOCYTES # 1.8 10^3/ul (0.8-2.9); MEAN CORPUSCULAR HEMOGLOBIN 30.3 pg (29.0-33.0); MEAN CORPUSCULAR HGB CONC 32.6 g/dl (32.0-37.0); MEAN CORPUSCULAR VOLUME 92.9 fl (82.0-101.0); MEAN PLATELET VOLUME 9.5 fl (7.4-10.4); MONOCYTE # 0.8 10^3/ul (0.3-0.9); MONOCYTES % 10.5 % (0.0-11.0); NEUTROPHIL # 4.5 10^3/ul (1.6-7.5); NEUTROPHILS % 61.8 % (39.0-77.0); PLATELET COUNT 357 10^3/UL (140-415); RED CELL DISTRIBUTION WIDTH 14.6 % (11.5-14.5)
[2017-08-26 06:49] LABS: ANION GAP 16 (8-16); BLOOD UREA NITROGEN 11 mg/dl (7-20); CALCIUM 9.1 mg/dl (8.4-10.2); CARBON DIOXIDE 26 mmol/L (21-31); CHLORIDE 105 mmol/L (97-110); CREATININE 0.56 mg/dl (0.61-1.24); GLUCOSE 215 mg/dl (70-220); POTASSIUM 4.1 mmol/L (3.5-5.1); SODIUM 143 mmol/L (135-144)
[2017-08-26] MEDS: INSULIN GLARGINE [LANtus] 3 ML PEN SC (07:56)
[2017-08-26] MEDS: INSULIN ASPART [NOVOLOG] 3 ML PEN SC ×7 (07:58→20:49)
[2017-08-26] MEDS: FOLIC ACID 0.4 MG TAB PO (08:45)
[2017-08-26] MEDS: ARTIFICIAL TEARS 15 ML OPH BOTH EYES (08:46)
[2017-08-26] MEDS: THIAMINE 100 MG TAB PO (08:46)
[2017-08-26] MEDS: DOXYCYCLINE 100 MG TAB PO ×2 (08:46→20:46)
[2017-08-26] MEDS: MUPIROCIN 2% 22 GM OINT TOP ×2 (08:46→20:52)
[2017-08-26] MEDS: CEFTRIAXONE 1 GM/50 ML (PMX) 50 ML IVPB (10:45)
[2017-08-26 19:11] LABS: HEPATITIS B DELTA ANTIBODY NEGATIVE
[2017-08-27] MEDS: ACCU-CHEK XX (01:16)
[2017-08-27] MEDS: LACTULOSE 30ML CUP PO ×3 (01:20→17:36)
[2017-08-27] MEDS: PANTOPRAZOLE (EC) 40 MG TAB PO (05:37)
[2017-08-27 06:02] LABS: ADD MAN DIFF? NO
[2017-08-27 06:06] LABS: BASOPHIL # 0.1 10^3/ul (0.0-0.1); BASOPHILS % 1.9 % (0.0-2.0); EOSINOPHILS % 0.6 % (0.0-7.0); HEMATOCRIT 31.5 % (42.0-52.0); HEMOGLOBIN 10.5 g/dl (14.0-18.0); LYMPHOCYTES # 1.8 10^3/ul (0.8-2.9); LYMPHOCYTES % 26.6 % (15.0-51.0); MEAN CORPUSCULAR HGB CONC 33.3 g/dl (32.0-37.0); MEAN CORPUSCULAR VOLUME 92.9 fl (82.0-101.0); MEAN PLATELET VOLUME 9.2 fl (7.4-10.4); MONOCYTE # 0.6 10^3/ul (0.3-0.9); MONOCYTES % 9.2 % (0.0-11.0); NEUTROPHIL # 4.1 10^3/ul (1.6-7.5); PLATELET COUNT 338 10^3/UL (140-415); RED BLOOD COUNT 3.39 10^6/ul (4.70-6.10); RED CELL DISTRIBUTION WIDTH 14.3 % (11.5-14.5)
[2017-08-27 06:06] LABS: WHITE BLOOD COUNT 6.8 10^3/ul (4.8-10.8)
[2017-08-27 06:35] LABS: ANION GAP 15 (8-16); BLOOD UREA NITROGEN 12 mg/dl (7-20); CALCIUM 9.1 mg/dl (8.4-10.2); CARBON DIOXIDE 25 mmol/L (21-31); CHLORIDE 106 mmol/L (97-110); CREATININE 0.59 mg/dl (0.61-1.24); GLUCOSE 198 mg/dl (70-220); POTASSIUM 4.1 mmol/L (3.5-5.1); SODIUM 142 mmol/L (135-144)
[2017-08-27] MEDS: INSULIN GLARGINE [LANtus] 3 ML PEN SC (08:09)
[2017-08-27] MEDS: INSULIN ASPART [NOVOLOG] 3 ML PEN SC ×7 (08:09→21:00)
[2017-08-27] MEDS: MUPIROCIN 2% 22 GM OINT TOP ×2 (08:11→21:05)
[2017-08-27] MEDS: THIAMINE 100 MG TAB PO (08:12)
[2017-08-27] MEDS: DOXYCYCLINE 100 MG TAB PO ×2 (08:12→21:05)
[2017-08-27] MEDS: FOLIC ACID 0.4 MG TAB PO (08:12)
[2017-08-27] MEDS: CEFTRIAXONE 1 GM/50 ML (PMX) 50 ML IVPB (09:32)
[2017-08-28] MEDS: LACTULOSE 30ML CUP PO ×3 (01:33→17:09)
[2017-08-28] MEDS: ACCU-CHEK XX (01:35)
[2017-08-28] MEDS: PANTOPRAZOLE (EC) 40 MG TAB PO (06:10)
[2017-08-28 07:26] LABS: ADD MAN DIFF? NO
[2017-08-28 07:28] LABS: BASOPHIL # 0.1 10^3/ul (0.0-0.1); BASOPHILS % 2.2 % (0.0-2.0); EOSINOPHILS # 0.1 10^3/ul (0.0-0.5); HEMATOCRIT 32.2 % (42.0-52.0); HEMOGLOBIN 10.6 g/dl (14.0-18.0); LYMPHOCYTES # 1.5 10^3/ul (0.8-2.9); LYMPHOCYTES % 26.2 % (15.0-51.0); MEAN CORPUSCULAR HEMOGLOBIN 30.8 pg (29.0-33.0); MEAN CORPUSCULAR HGB CONC 32.9 g/dl (32.0-37.0); MEAN CORPUSCULAR VOLUME 93.6 fl (82.0-101.0); MEAN PLATELET VOLUME 9.2 fl (7.4-10.4); MONOCYTE # 0.5 10^3/ul (0.3-0.9); MONOCYTES % 8.8 % (0.0-11.0); NEUTROPHIL # 3.6 10^3/ul (1.6-7.5); NEUTROPHILS % 61.1 % (39.0-77.0); PLATELET COUNT 317 10^3/UL (140-415); RED BLOOD COUNT 3.44 10^6/ul (4.70-6.10); RED CELL DISTRIBUTION WIDTH 14.4 % (11.5-14.5)
[2017-08-28 07:28] LABS: WHITE BLOOD COUNT 5.9 10^3/ul (4.8-10.8)
[2017-08-28 07:47] LABS: ANION GAP 16 (8-16); BLOOD UREA NITROGEN 14 mg/dl (7-20); CALCIUM 9.2 mg/dl (8.4-10.2); CARBON DIOXIDE 24 mmol/L (21-31); CHLORIDE 107 mmol/L (97-110); CREATININE 0.52 mg/dl (0.61-1.24); GLUCOSE 223 mg/dl (70-220); POTASSIUM 4.3 mmol/L (3.5-5.1); SODIUM 143 mmol/L (135-144)
[2017-08-28] MEDS: INSULIN ASPART [NOVOLOG] 3 ML PEN SC ×7 (08:25→20:31)
[2017-08-28] MEDS: THIAMINE 100 MG TAB PO (08:45)
[2017-08-28] MEDS: DOXYCYCLINE 100 MG TAB PO (08:45)
[2017-08-28] MEDS: FOLIC ACID 0.4 MG TAB PO (08:45)
[2017-08-28] MEDS: CEFTRIAXONE 1 GM/50 ML (PMX) 50 ML IVPB (10:08)
[2017-08-28] MEDS: MUPIROCIN 2% 22 GM OINT TOP (10:09)
[2017-08-28] MEDS: INSULIN GLARGINE [LANtus] 3 ML PEN SC (10:11)
[2017-08-28] MEDS: ARTIFICIAL TEARS 15 ML OPH BOTH EYES (10:13)
[2017-08-28] MEDS: NYSTATIN 15 GM CR TOP ×2 (15:39→23:00)
[2017-08-29] MEDS: LACTULOSE 30ML CUP PO ×3 (01:42→17:43)
[2017-08-29] MEDS: ACCU-CHEK XX (02:00)
[2017-08-29] MEDS: PANTOPRAZOLE (EC) 40 MG TAB PO (06:11)
[2017-08-29] MEDS: INSULIN ASPART [NOVOLOG] 3 ML PEN SC ×7 (08:06→21:00)
[2017-08-29 08:59] LABS: ADD MAN DIFF? NO
[2017-08-29 09:05] LABS: WHITE BLOOD COUNT 5.5 10^3/ul (4.8-10.8)
[2017-08-29 09:05] LABS: BASOPHIL # 0.1 10^3/ul (0.0-0.1); BASOPHILS % 2.2 % (0.0-2.0); EOSINOPHILS # 0.1 10^3/ul (0.0-0.5); EOSINOPHILS % 1.1 % (0.0-7.0); HEMATOCRIT 32.5 % (42.0-52.0); HEMOGLOBIN 10.7 g/dl (14.0-18.0); LYMPHOCYTES # 1.6 10^3/ul (0.8-2.9); LYMPHOCYTES % 29.3 % (15.0-51.0); MEAN CORPUSCULAR HEMOGLOBIN 30.8 pg (29.0-33.0); MEAN CORPUSCULAR HGB CONC 32.9 g/dl (32.0-37.0); MEAN CORPUSCULAR VOLUME 93.7 fl (82.0-101.0); MEAN PLATELET VOLUME 9.7 fl (7.4-10.4); MONOCYTE # 0.6 10^3/ul (0.3-0.9); MONOCYTES % 10.5 % (0.0-11.0); NEUTROPHIL # 3.1 10^3/ul (1.6-7.5); NEUTROPHILS % 56.2 % (39.0-77.0); PLATELET COUNT 310 10^3/UL (140-415); RED BLOOD COUNT 3.47 10^6/ul (4.70-6.10); RED CELL DISTRIBUTION WIDTH 14.1 % (11.5-14.5)
[2017-08-29 09:45] LABS: ANION GAP 16 (8-16); BLOOD UREA NITROGEN 12 mg/dl (7-20); CALCIUM 9.5 mg/dl (8.4-10.2); CARBON DIOXIDE 26 mmol/L (21-31); CHLORIDE 104 mmol/L (97-110); CREATININE 0.54 mg/dl (0.61-1.24); GLUCOSE 329 mg/dl (70-220); POTASSIUM 4.2 mmol/L (3.5-5.1); SODIUM 142 mmol/L (135-144)
[2017-08-29] MEDS: THIAMINE 100 MG TAB PO (10:11)
[2017-08-29] MEDS: NYSTATIN 15 GM CR TOP ×3 (10:11→22:14)
[2017-08-29] MEDS: FOLIC ACID 0.4 MG TAB PO (10:11)
[2017-08-29] MEDS: INSULIN GLARGINE [LANtus] 3 ML PEN SC (10:12)
[2017-08-29] MEDS: ARTIFICIAL TEARS 15 ML OPH BOTH EYES (22:13)
[2017-08-30] MEDS: LACTULOSE 30ML CUP PO ×3 (01:11→17:00)
[2017-08-30] MEDS: ACCU-CHEK XX (02:00)
[2017-08-30] MEDS: PANTOPRAZOLE (EC) 40 MG TAB PO (05:44)
[2017-08-30 06:12] LABS: WHITE BLOOD COUNT 5.3 10^3/ul (4.8-10.8)
[2017-08-30 06:12] LABS: ADD MAN DIFF? NO; BASOPHIL # 0.1 10^3/ul (0.0-0.1); BASOPHILS % 2.3 % (0.0-2.0); EOSINOPHILS # 0.1 10^3/ul (0.0-0.5); EOSINOPHILS % 1.1 % (0.0-7.0); HEMATOCRIT 32.2 % (42.0-52.0); HEMOGLOBIN 10.7 g/dl (14.0-18.0); LYMPHOCYTES # 1.7 10^3/ul (0.8-2.9); LYMPHOCYTES % 31.4 % (15.0-51.0); MEAN CORPUSCULAR HEMOGLOBIN 30.5 pg (29.0-33.0); MEAN CORPUSCULAR HGB CONC 33.2 g/dl (32.0-37.0); MEAN CORPUSCULAR VOLUME 91.7 fl (82.0-101.0); MEAN PLATELET VOLUME 9.2 fl (7.4-10.4); MONOCYTE # 0.5 10^3/ul (0.3-0.9); MONOCYTES % 10.1 % (0.0-11.0); NEUTROPHIL # 2.9 10^3/ul (1.6-7.5); NEUTROPHILS % 54.7 % (39.0-77.0); PLATELET COUNT 268 10^3/UL (140-415); RED BLOOD COUNT 3.51 10^6/ul (4.70-6.10); RED CELL DISTRIBUTION WIDTH 13.9 % (11.5-14.5)
[2017-08-30 06:51] LABS: ANION GAP 15 (8-16); BLOOD UREA NITROGEN 14 mg/dl (7-20); CALCIUM 9.5 mg/dl (8.4-10.2); CARBON DIOXIDE 28 mmol/L (21-31); CHLORIDE 104 mmol/L (97-110); CREATININE 0.52 mg/dl (0.61-1.24); GLUCOSE 286 mg/dl (70-220); POTASSIUM 4.5 mmol/L (3.5-5.1); SODIUM 142 mmol/L (135-144)
[2017-08-30 06:52] LABS: ALANINE AMINOTRANSFERASE 64 IU/L (13-69); ALBUMIN 3.4 g/dl (3.3-4.9); ALBUMIN/GLOBULIN RATIO 0.65; ALKALINE PHOSPHATASE 191 IU/L (42-121); ANION GAP 18 (8-16); ASPARTATE AMINO TRANSFERASE 68 IU/L (15-46); BILIRUBIN,INDIRECT 0.1 mg/dl (0-1.1); BILIRUBIN,TOTAL 0.1 mg/dl (0.2-1.3); BLOOD UREA NITROGEN 14 mg/dl (7-20); CALCIUM 9.5 mg/dl (8.4-10.2); CARBON DIOXIDE 25 mmol/L (21-31); CHLORIDE 104 mmol/L (97-110); CREATININE 0.48 mg/dl (0.61-1.24); GLUCOSE 280 mg/dl (70-220); POTASSIUM 4.7 mmol/L (3.5-5.1); SODIUM 142 mmol/L (135-144); TOTAL PROTEIN 8.6 g/dl (6.1-8.1)
[2017-08-30] MEDS: INSULIN ASPART [NOVOLOG] 3 ML PEN SC ×7 (09:27→21:15)
[2017-08-30] MEDS: INSULIN GLARGINE [LANtus] 3 ML PEN SC (09:29)
[2017-08-30] MEDS: ARTIFICIAL TEARS 15 ML OPH BOTH EYES (09:29)
[2017-08-30] MEDS: THIAMINE 100 MG TAB PO (09:35)
[2017-08-30] MEDS: FOLIC ACID 0.4 MG TAB PO (09:36)
[2017-08-30] MEDS: NYSTATIN 15 GM CR TOP ×2 (10:53→21:13)
[2017-08-31] MEDS: LACTULOSE 30ML CUP PO ×3 (01:00→17:28)
[2017-08-31] MEDS: ACCU-CHEK XX (02:27)
[2017-08-31] MEDS: PANTOPRAZOLE (EC) 40 MG TAB PO (05:34)
[2017-08-31] MEDS: INSULIN ASPART [NOVOLOG] 3 ML PEN SC ×7 (08:17→20:07)
[2017-08-31] MEDS: INSULIN GLARGINE [LANtus] 3 ML PEN SC (08:19)
[2017-08-31] MEDS: NYSTATIN 15 GM CR TOP ×2 (08:20→22:51)
[2017-08-31] MEDS: FOLIC ACID 0.4 MG TAB PO (08:20)
[2017-08-31] MEDS: THIAMINE 100 MG TAB PO (08:20)
[2017-09-01] MEDS: ACCU-CHEK XX (02:00)
[2017-09-01] MEDS: LACTULOSE 30ML CUP PO ×3 (03:10→17:13)
[2017-09-01] MEDS: PANTOPRAZOLE (EC) 40 MG TAB PO (05:14)
[2017-09-01] MEDS: INSULIN ASPART [NOVOLOG] 3 ML PEN SC ×7 (07:48→21:00)
[2017-09-01] MEDS: FOLIC ACID 0.4 MG TAB PO (08:13)
[2017-09-01] MEDS: THIAMINE 100 MG TAB PO (08:13)
[2017-09-01] MEDS: NYSTATIN 15 GM CR TOP ×2 (08:14→21:24)
[2017-09-01] MEDS: ARTIFICIAL TEARS 15 ML OPH BOTH EYES ×2 (08:20→17:14)
[2017-09-01] MEDS: INSULIN GLARGINE [LANtus] 3 ML PEN SC (08:20)
[2017-09-01] MEDS: LINAGLIPTIN 5 MG TABLET PO (12:14)
[2017-09-01] MEDS: HYDROCODONE/APAP (5/325) TAB PO (23:30)
[2017-09-02] MEDS: LACTULOSE 30ML CUP PO ×2 (01:22→09:03)
[2017-09-02] MEDS: ACCU-CHEK XX (02:00)
[2017-09-02] MEDS: PANTOPRAZOLE (EC) 40 MG TAB PO (06:32)
[2017-09-02] MEDS: LINAGLIPTIN 5 MG TABLET PO (08:49)
[2017-09-02] MEDS: THIAMINE 100 MG TAB PO (08:49)
[2017-09-02] MEDS: FOLIC ACID 0.4 MG TAB PO (08:49)
[2017-09-02] MEDS: INSULIN ASPART [NOVOLOG] 3 ML PEN SC ×4 (08:52→12:38)
[2017-09-02] MEDS: INSULIN GLARGINE [LANtus] 3 ML PEN SC (08:53)
[2017-09-02] MEDS: NYSTATIN 15 GM CR TOP (08:54)
[2017-09-02] MEDS: ACETAMINOPHEN 325 MG TAB PO (09:12)
[2017-09-02] MEDS: ARTIFICIAL TEARS 15 ML OPH BOTH EYES (10:46)
== END 2017-09-02 15:55 | disposition home or self-care (01) | DRG 871 ==
LOC: TEL 08-15 12:07 → MS2 08-19 03:47 → E/R 10:37 → MS2 08-19 07:04
DX: A40.0 Sepsis due to streptococcus, group A (principal); J18.9 Pneumonia, unspecified organism; G92 Toxic encephalopathy; M62.82 Rhabdomyolysis; E87.2 Acidosis; B38.9 Coccidioidomycosis, unspecified; R65.20 Severe sepsis without septic shock; D69.6 Thrombocytopenia, unspecified; E11.22 Type 2 diabetes mellitus with diabetic chronic kidney disease; E11.65 Type 2 diabetes mellitus with hyperglycemia; E78.00 Pure hypercholesterolemia, unspecified; E87.6 Hypokalemia; F10.129 Alcohol abuse with intoxication, unspecified; I12.9 Hypertensive chronic kidney disease with stage 1 through stage 4 chronic kidney disease, or unspecified chronic kidney disease; N18.9 Chronic kidney disease, unspecified; D64.9 Anemia, unspecified; K52.9 Noninfective gastroenteritis and colitis, unspecified; K80.20 Calculus of gallbladder without cholecystitis without obstruction; K70.10 Alcoholic hepatitis without ascites; K21.9 Gastro-esophageal reflux disease without esophagitis; B86 Scabies; B95.62 Methicillin resistant Staphylococcus aureus infection as the cause of diseases classified elsewhere; R16.0 Hepatomegaly, not elsewhere classified; Y90.8 Blood alcohol level of 240 mg/100 ml or more; Z59.0 Homelessness
CPT/HCPCS: 36415; 70450; 71045; 74176; 76705; 78226; 80048; 80053; 80061; 80202; 80306; 80307; 81003; 82140; 82550; 82962; 83036; 83605; 83690; 83735; 84100; 84425; 84436; 84443; 84479; 84484; 85025; 85610; 85730; 86692; 86704; 86709; 86803; 87040; 87081; 87086; 87340; 87400; 92526; 92610; 93005; 93306; 96372; 96374; 96375; 96376; 97110; 97116; 97162; 97530; 99291-25